=== PATIENT | male | born 1975 | race Caucasian/White ===

== ENCOUNTER → 2024-03-07 | Outpatient (CLI) | payer OTHER ==
--- NOTE | 2024-03-07 13:02 | XR ---
Right ankle. HISTORY: Achilles pain. COMPARISON: None TECHNIQUE: 3 views of the right ankle were obtained. FINDINGS: There is no fracture, dislocation, interosseous, intra-articular or soft tissue abnormality. The ankl e mortise is intact. IMPRESSION: No significant abnormality seen. No evidence of acute trauma.
== END | disposition home or self-care (01) ==
LOC: RADXRMAIN 10:54
PROVIDERS: ATTEND Emergency Medicine
DX: S86.011A Strain of right Achilles tendon, initial encounter (principal)